=== PATIENT | male | born 1985 | race African-American/Black ===

== ENCOUNTER → 2018-04-21 | Emergency (ER) | payer OTHER ==
[2018-04-22 00:08] VITALS: BP 115/71; PULSE 90; TEMP 97.2; BMI 107.6
--- NOTE | 2018-04-22 02:51 | PDOC ---
History of Present Illness - General Chief Complaint: Headache Stated Complaint: HIGH BLOOD SUGAR,DIABETES Time Seen by Provider: 04/21/18 23:33 History Source: Patient Exam Limitations: No Limitations - History of Present Illness Initial Comments: 04/22/18 02:43 Patient is a 32-year-old male with history of diabetes, HLD c/o APONTE x few days. Patient states APONTE has been intermittent, throbbing, frontal since 4 days. States has been having some associated dizziness - lightheadedness and today states had to catch himself felt like he was going to fall x 3 episodes. States he has DM on metformin currently but his bs has been mildly elevated BS today was 140 in the am and 175 tonight. States only had 1 meal today which consisted of a small chicken salad at 6 pm. He currently has no APONTE but just thought he should come to the ED to get himself checked/. There is any chest pain, shortness of breath. PMD: Dr. Livingston PMHX: as above PSOCHX: (+) MJ daily, no cig, occ etoh ALL: NKDA GENERAL/CONSTITUTIONAL: [No fever or chills. No weakness. No weight change.] HEAD, EYES, EARS, NOSE AND THROAT: [No change in vision. No ear pain or discharge. No sore throat.] CARDIOVASCULAR: [No chest pain or shortness of breath.] RESPIRATORY: [No cough, wheezing, or hemoptysis.] GASTROINTESTINAL: [No nausea, vomiting, diarrhea or constipation. No rectal bleeding.] GENITOURINARY: [No dysuria, frequency, or change in urination.] MUSCULOSKELETAL: [No joint or muscle swelling or pain. No neck or back pain.] SKIN AND BREASTS: [No rash or easy bruising.] NEUROLOGIC: (+) headache, (-) vertigo, loss of consciousness, or loss of sensation.] PSYCHIATRIC: [No depression or anxiety.] ENDOCRINE: [No increased thirst. No abnormal weight change.] HEMATOLOGIC/LYMPHATIC: [No anemia, easy bleeding, or history of blood clots.] ALLERGIC/IMMUNOLOGIC: [No hives or skin allergy. No latex allergy.] GENERAL: [The patient is awake, alert, and fully oriented, in no acute distress. ] HEAD: [Normal with no signs of trauma.] EYES: [Pupils equal, round and reactive to light, extraocular movements intact, sclera anicteric, conjunctiva clear.] ENT: [Ears normal, nares patent, oropharynx clear without exudates. Moist mucous membranes.] NECK: [Normal range of motion, supple without lymphadenopathy, JVD, or masses.] LUNGS: [Breath sounds equal, clear to auscultation bilaterally. No wheezes, and no crackles.] HEART: [Regular rate and rhythm, normal S1 and S2 without murmur, rub.] ABDOMEN: Obese, Soft, nontender, normoactive bowel sounds. No guarding, no rebound. No masses.] EXTREMITIES: [Normal range of motion, no edema. No clubbing or cyanosis. No cords, erythema, or tenderness.] NEUROLOGICAL: [Cranial nerves II through XII grossly intact. Normal speech, normal gait.] PSYCH: [Normal mood, normal affect.] SKIN: [Warm, Dry, normal turgor, no rashes or lesions noted.] Past History - Past Medical History COPD: No Diabetes: Yes - Suicide/Smoking/Psychosocial Hx Smoking History: Unknown if ever smoked Have you smoked in the past 12 months: No Information on smoking cessation initiated: No Hx Alcohol Use: No Drug/Substance Use Hx: No *Physical Exam - Vital Signs Last Vital Signs Temp Pulse Resp BP Pulse Ox 97.2 F L 90 20 115/71 98 04/21/18 23:58 04/21/18 23:58 04/21/18 23:58 04/21/18 23:58 04/21/18 23:58 Moderate Sedation - Procedure Monitoring Vital Signs: Procedure Monitoring Vital Signs Temperature 97.2 F L 04/21/18 23:58 Pulse Rate 90 04/21/18 23:58 Respiratory Rate 20 04/21/18 23:58 Blood Pressure 115/71 04/21/18 23:58 O2 Sat by Pulse Oximetry (%) 98 04/21/18 23:58 Medical Decision Making - Medical Decision Making 04/22/18 02:51 04/22/18 02:43 Patient is a 32-year-old male with history of diabetes, HLD c/o APONTE x few days. Patient states APONTE has been intermittent, throbbing, frontal since 4 days. States has been having some associated dizziness - lightheadedness and today states had to catch himself felt like he was going to fall x 3 episodes. States he has DM on metformin currently but his bs has been mildly elevated BS today was 140 in the am and 175 tonight. States only had 1 meal today which consisted of a small chicken salad at 6 pm. He currently has no APONTE but just thought he should come to the ED to get himself checked/. There is any chest pain, shortness of breath. Planned a workup for the patient but went back and hear the patient had eloped prior to initiation of the orders. *DC/Admit/Observation/Transfer Diagnosis at time of Disposition: Headache Qualifiers: Headache type: unspecified Headache chronicity pattern: acute headache Intractability: not intractable Qualified Code(s): R51 - Headache - Discharge Dispostion Disposition: ELOPED Condition at time of disposition: Stable - Referrals Referrals: Aubrey Latham MD [Primary Care Provider] - - Patient Instructions - Post Discharge Activity
== END | disposition left against medical advice (07) ==
LOC: JER 22:47
DX: R51 Headache (principal); E11.9 Type 2 diabetes mellitus without complications; Z79.84 Long term (current) use of oral hypoglycemic drugs; E78.5 Hyperlipidemia, unspecified
CPT/HCPCS: 99282-25